=== PATIENT | male | born 1950 | race Caucasian/White ===

== ENCOUNTER 2022-03-09 11:14 | Emergency (ER) | payer MEDICARE, BC ==
[~2022-03-09] VITALS: Ht 175.3 cm; Wt 104.3 kg
[2022-03-09 13:31] VITALS: BP 143/61
== END 2022-03-09 13:38 | disposition home or self-care (01) ==
LOC: ER 11:14
DX: M79.672 Pain in left foot (principal)
CPT/HCPCS: 73700